=== PATIENT | male | born 1955 | race Caucasian/White ===

== ENCOUNTER 2022-09-24 10:30 | Outpatient (RCR) | payer MEDICARE, SELFPAY ==
[2022-09-12] MEDS: Normal Saline Flush 10 ML SYR IVP (08:59)
[2022-09-12 09:23] LABS: Abs Immature Grans 0.03 10^3/uL (0.0-0.06); Absolute Basophil Count 0.08 10^3/uL (0.0-0.2); Absolute Eosinophil Count 0.53 10^3/uL (0.0-0.7); Absolute Lymphocyte Count 3.06 10^3/uL (1.2-3.4); Absolute Monocyte Count 1.04 10^3/uL (0.1-0.8); Absolute Neutrophil Count 6.69 10^3/uL (1.2-6.7); Basophils % 0.7; Eosinophils % 4.6; HCT 39.9 % (40.0-50.0); HGB 13.2 g/dL (13.5-17.5); Immature Grans % 0.3; Lymphocytes % 26.8; MCH 28.1 pg (27.0-33.0); MCHC 33.1 % (32.0-36.0); MCV 85 fL (80-95); Monocytes % 9.1; Neutrophils % 58.5; Platelet Count 483 10^3/uL (130-400); RBC 4.69 10^6/uL (4.36-5.78); RDW 14.4 % (11.8-14.1); RDW-SD 44.2 fL; WBC 11.43 10^3/uL (4.4-10.8)
[2022-09-12 09:44] LABS: ALT 20 U/L (16-63); AST 19 U/L (15-37); Albumin 3.1 g/dL (3.4-5.0); Alkaline Phosphatase 100 U/L (46-116); Anion Gap 9.9 mmol/L (3-11); BUN 11 mg/dL (7-18); Bilirubin, Total 0.5 mg/dL (0.2-1.0); CO2 25.1 mmol/L (21.0-32.0); CREATININE 0.9 mg/dL (0.70-1.30); Calcium 8.6 mg/dL (8.5-10.1); Chloride 102 mmol/L (98-107); Estimated GFR 93.61 (mL/min/1.73m2); Glucose 236 mg/dL (74-106); LDH 203 U/L (85-227); PHOSPHORUS 3.5 mg/dL (2.6-4.7); Potassium 3.7 mmol/L (3.5-5.1); Sodium 137 mmol/L (136-145); Total Protein 7.4 g/dL (6.4-8.2); Uric Acid 5.2 mg/dL (3.5-7.2)
[2022-09-13 10:28] LABS: IgA 484 mg/dL (85-499); IgG 1296 mg/dL (610-1616); IgM 61 mg/dL (35-242)
[2022-09-19] MEDS: Heparin 500 UNITS/5 ML SYRINGE IV (13:42)
[2022-09-19] MEDS: Normal Saline Flush 10 ML SYR IVP (13:42)
[2022-09-19 13:56] LABS: Abs Immature Grans 0.24 10^3/uL (0.0-0.06); HCT 38.5 % (40.0-50.0); HGB 12.5 g/dL (13.5-17.5); MCH 27.7 pg (27.0-33.0); MCHC 32.5 % (32.0-36.0); MCV 85 fL (80-95); MPV 10.5 fL (8.0-11.0); Platelet Count 303 10^3/uL (130-400); RBC 4.52 10^6/uL (4.36-5.78); RDW 13.9 % (11.8-14.1); RDW-SD 43.3 fL; WBC 3.91 10^3/uL (4.4-10.8)
[2022-09-19 14:16] LABS: Absolute Lymphocyte Count 1.56 10^3/uL (1.2-3.4); Absolute Monocyte Count 0.27 10^3/uL (0.1-0.8); Absolute Neutrophil Count 1.99 10^3/uL (1.2-6.7); Bands % 11
[2022-09-19 14:17] LABS: Diff Comment Manual Differential; Metamyelocytes % 2; RBC Morphology Normal
[2022-09-19 15:29] LABS: ALT 20 U/L (16-63); AST 15 U/L (15-37); Albumin 3.2 g/dL (3.4-5.0); Alkaline Phosphatase 92 U/L (46-116); Anion Gap 11.7 mmol/L (3-11); BUN 11 mg/dL (7-18); Bilirubin, Total 0.4 mg/dL (0.2-1.0); CO2 25.3 mmol/L (21.0-32.0); CREATININE 0.7 mg/dL (0.70-1.30); Calcium 8.4 mg/dL (8.5-10.1); Chloride 101 mmol/L (98-107); Estimated GFR 100.99 (mL/min/1.73m2); Glucose 185 mg/dL (74-106); Potassium 3.4 mmol/L (3.5-5.1); Sodium 138 mmol/L (136-145)
[2022-09-20 08:44] LABS: Uric Acid 4.1 mg/dL (3.5-7.2)
[2022-09-24] MEDS: Normal Saline Flush 10 ML SYR IVP (11:45)
[2022-09-24 11:51] LABS: Abs Immature Grans 1.25 10^3/uL (0.0-0.06); HCT 40.7 % (40.0-50.0); HGB 13.2 g/dL (13.5-17.5); MCH 27.7 pg (27.0-33.0); MCHC 32.4 % (32.0-36.0); MCV 86 fL (80-95); MPV 9.9 fL (8.0-11.0); Platelet Count 318 10^3/uL (130-400); RBC 4.76 10^6/uL (4.36-5.78); RDW 14.3 % (11.8-14.1)
[2022-09-24 12:09] LABS: ALT 22 U/L (16-63); AST 18 U/L (15-37); Albumin 3.3 g/dL (3.4-5.0); Alkaline Phosphatase 96 U/L (46-116); Anion Gap 10.1 mmol/L (3-11); BUN 10 mg/dL (7-18); Bilirubin, Total 0.3 mg/dL (0.2-1.0); CO2 27.9 mmol/L (21.0-32.0); CREATININE 0.9 mg/dL (0.70-1.30); Calcium 8.9 mg/dL (8.5-10.1); Chloride 103 mmol/L (98-107); Estimated GFR 93.61 (mL/min/1.73m2); Glucose 138 mg/dL (74-106); Potassium 3.6 mmol/L (3.5-5.1); Sodium 141 mmol/L (136-145); Total Protein 7.2 g/dL (6.4-8.2)
[2022-09-24 12:11] LABS: Absolute Neutrophil Count 6.53 10^3/uL (1.2-6.7); Bands % 6
[2022-09-24 12:12] LABS: Absolute Basophil Count 0.24 10^3/uL (0.0-0.2); Absolute Eosinophil Count 0.12 10^3/uL (0.0-0.7); Absolute Lymphocyte Count 3.39 10^3/uL (1.2-3.4); Absolute Monocyte Count 1.82 10^3/uL (0.1-0.8); Atypical Lymphocytes % 1; Diff Comment Manual Differential; RBC Morphology Normal
== END 2022-10-02 23:59 | disposition home or self-care (01) ==
LOC: INF 10:30
PROVIDERS: PCP Family Medicine; Visit Provider Nurse Practitioner Adult Health
DX: C86.5 Angioimmunoblastic T-cell lymphoma (principal); Z45.2 Encounter for adjustment and management of vascular access device
CPT/HCPCS: 36591; 80053; 82784; 83615; 84100; 84550; 85025

== ENCOUNTER 2022-10-24 02:28 | Outpatient (RCR) | payer MEDICARE, SELFPAY ==
[2022-10-03] MEDS: Normal Saline Flush 10 ML SYR IVP (09:36)
[2022-10-03 09:56] LABS: Abs Immature Grans 0.08 10^3/uL (0.0-0.06); Absolute Eosinophil Count 0.47 10^3/uL (0.0-0.7); Absolute Lymphocyte Count 2.87 10^3/uL (1.2-3.4); Absolute Monocyte Count 1.34 10^3/uL (0.1-0.8); Absolute Neutrophil Count 7.49 10^3/uL (1.2-6.7); Basophils % 3.2; Eosinophils % 3.7; HCT 39.4 % (40.0-50.0); HGB 12.8 g/dL (13.5-17.5); Immature Grans % 0.6; Lymphocytes % 22.7; MCH 27.7 pg (27.0-33.0); MCHC 32.5 % (32.0-36.0); MCV 85 fL (80-95); MPV 10.2 fL (8.0-11.0); Monocytes % 10.6; Neutrophils % 59.2; RBC 4.62 10^6/uL (4.36-5.78); RDW-SD 45.7 fL; WBC 12.65 10^3/uL (4.4-10.8)
[2022-10-03 10:15] LABS: ALT 24 U/L (16-63); AST 20 U/L (15-37); Albumin 3.4 g/dL (3.4-5.0); Alkaline Phosphatase 81 U/L (46-116); Anion Gap 7.6 mmol/L (3-11); BUN 10 mg/dL (7-18); Bilirubin, Total 0.6 mg/dL (0.2-1.0); CO2 27.4 mmol/L (21.0-32.0); CREATININE 0.9 mg/dL (0.70-1.30); Chloride 102 mmol/L (98-107); Estimated GFR 93.61 (mL/min/1.73m2); Glucose 137 mg/dL (74-106); LDH 250 U/L (85-227); Potassium 4.3 mmol/L (3.5-5.1); Sodium 137 mmol/L (136-145); Total Protein 7.4 g/dL (6.4-8.2); Uric Acid 4.6 mg/dL (3.5-7.2)
[2022-10-03 10:19] LABS: Platelet Count 652 10^3/uL (130-400)
[2022-10-04 11:09] LABS: IgA 367 mg/dL (85-499); IgG 999 mg/dL (610-1616); IgM 59 mg/dL (35-242)
[2022-10-24] MEDS: Normal Saline Flush 10 ML SYR IVP (07:51)
[2022-10-24 08:07] LABS: Abs Immature Grans 0.04 10^3/uL (0.0-0.06); Absolute Eosinophil Count 0.13 10^3/uL (0.0-0.7); Absolute Lymphocyte Count 2.16 10^3/uL (1.2-3.4); Absolute Monocyte Count 1.24 10^3/uL (0.1-0.8); Absolute Neutrophil Count 5.39 10^3/uL (1.2-6.7); Basophils % 2.2; Eosinophils % 1.4; HCT 36.9 % (40.0-50.0); HGB 12.3 g/dL (13.5-17.5); Immature Grans % 0.4; Lymphocytes % 23.6; MCH 28.5 pg (27.0-33.0); MCHC 33.3 % (32.0-36.0); MCV 86 fL (80-95); MPV 10.4 fL (8.0-11.0); Monocytes % 13.5; Neutrophils % 58.9; Platelet Count 488 10^3/uL (130-400); RBC 4.31 10^6/uL (4.36-5.78); RDW 16.5 % (11.8-14.1); RDW-SD 50.3 fL; WBC 9.16 10^3/uL (4.4-10.8)
[2022-10-24 08:21] LABS: ALT 20 U/L (16-63); AST 15 U/L (15-37); Albumin 3.2 g/dL (3.4-5.0); Alkaline Phosphatase 83 U/L (46-116); Anion Gap 8.4 mmol/L (3-11); BUN 11 mg/dL (7-18); Bilirubin, Total 0.4 mg/dL (0.2-1.0); CO2 25.6 mmol/L (21.0-32.0); CREATININE 0.8 mg/dL (0.70-1.30); Calcium 8.9 mg/dL (8.5-10.1); Chloride 107 mmol/L (98-107); Glucose 142 mg/dL (74-106); LDH 202 U/L (85-227); PHOSPHORUS 3.8 mg/dL (2.6-4.7); Potassium 4.1 mmol/L (3.5-5.1); Sodium 141 mmol/L (136-145); Total Protein 6.8 g/dL (6.4-8.2); Uric Acid 4.4 mg/dL (3.5-7.2)
[2022-10-25 09:29] LABS: IgA 319 mg/dL (85-499); IgG 849 mg/dL (610-1616); IgM 54 mg/dL (35-242)
== END 2022-11-02 23:59 | disposition home or self-care (01) ==
LOC: INF 02:28
PROVIDERS: PCP Family Medicine; Visit Provider Nurse Practitioner Adult Health
DX: C86.5 Angioimmunoblastic T-cell lymphoma (principal); Z45.2 Encounter for adjustment and management of vascular access device
CPT/HCPCS: 36591; 80053; 82784; 83615; 84100; 84550; 85025

== ENCOUNTER 2022-11-14 02:43 | Outpatient (RCR) | payer MEDICARE, SELFPAY ==
[2022-11-14] MEDS: Normal Saline Flush 10 ML SYR IVP (08:35)
[2022-11-14 08:41] LABS: Abs Immature Grans 0.05 10^3/uL (0.0-0.06); Absolute Basophil Count 0.19 10^3/uL (0.0-0.2); Absolute Eosinophil Count 0.09 10^3/uL (0.0-0.7); Absolute Lymphocyte Count 1.99 10^3/uL (1.2-3.4); Absolute Monocyte Count 1.17 10^3/uL (0.1-0.8); Absolute Neutrophil Count 7.95 10^3/uL (1.2-6.7); Basophils % 1.7; Eosinophils % 0.8; HCT 37.5 % (40.0-50.0); HGB 12.5 g/dL (13.5-17.5); Immature Grans % 0.4; Lymphocytes % 17.4; MCH 28.9 pg (27.0-33.0); MCHC 33.3 % (32.0-36.0); MCV 87 fL (80-95); MPV 10.2 fL (8.0-11.0); Monocytes % 10.2; Neutrophils % 69.5; Platelet Count 562 10^3/uL (130-400); RBC 4.33 10^6/uL (4.36-5.78); RDW 17.9 % (11.8-14.1); RDW-SD 55.6 fL; WBC 11.44 10^3/uL (4.4-10.8)
[2022-11-14 08:56] LABS: ALT 23 U/L (16-63); AST 18 U/L (15-37); Albumin 3.4 g/dL (3.4-5.0); Alkaline Phosphatase 79 U/L (46-116); Anion Gap 8.2 mmol/L (3-11); BUN 14 mg/dL (7-18); Bilirubin, Total 0.6 mg/dL (0.2-1.0); CO2 24.8 mmol/L (21.0-32.0); CREATININE 0.8 mg/dL (0.70-1.30); Chloride 104 mmol/L (98-107); Glucose 147 mg/dL (74-106); LDH 203 U/L (85-227); PHOSPHORUS 3.6 mg/dL (2.6-4.7); Potassium 4.4 mmol/L (3.5-5.1); Sodium 137 mmol/L (136-145); Total Protein 7.3 g/dL (6.4-8.2); Uric Acid 4.6 mg/dL (3.5-7.2)
[2022-11-15 10:45] LABS: IgA 320 mg/dL (85-499); IgG 830 mg/dL (610-1616); IgM 47 mg/dL (35-242)
== END 2022-12-02 23:59 | disposition home or self-care (01) ==
LOC: INF 02:43
PROVIDERS: PCP Family Medicine; Visit Provider Nurse Practitioner Adult Health
DX: C86.5 Angioimmunoblastic T-cell lymphoma (principal); Z45.2 Encounter for adjustment and management of vascular access device
CPT/HCPCS: 36591; 80053; 82784; 83615; 84100; 84550; 85025

== ENCOUNTER 2022-12-26 04:10 | Outpatient (RCR) | payer MEDICARE, SELFPAY ==
[2022-12-05] MEDS: Normal Saline Flush 10 ML SYR IVP (09:17)
[2022-12-05 09:20] LABS: Abs Immature Grans 0.05 10^3/uL (0.0-0.06); Absolute Basophil Count 0.16 10^3/uL (0.0-0.2); Absolute Eosinophil Count 0.05 10^3/uL (0.0-0.7); Absolute Lymphocyte Count 1.66 10^3/uL (1.2-3.4); Absolute Monocyte Count 1.01 10^3/uL (0.1-0.8); Absolute Neutrophil Count 7.72 10^3/uL (1.2-6.7); Basophils % 1.5; Eosinophils % 0.5; HCT 35.1 % (40.0-50.0); HGB 11.8 g/dL (13.5-17.5); Immature Grans % 0.5; Lymphocytes % 15.6; MCH 30.1 pg (27.0-33.0); MCHC 33.6 % (32.0-36.0); MCV 90 fL (80-95); MPV 9.7 fL (8.0-11.0); Monocytes % 9.5; Neutrophils % 72.4; Platelet Count 620 10^3/uL (130-400); RBC 3.92 10^6/uL (4.36-5.78); RDW 18.7 % (11.8-14.1); RDW-SD 61.1 fL; WBC 10.65 10^3/uL (4.4-10.8)
[2022-12-05 09:38] LABS: ALT 20 U/L (16-63); AST 16 U/L (15-37); Albumin 3.2 g/dL (3.4-5.0); Alkaline Phosphatase 79 U/L (46-116); Anion Gap 8.6 mmol/L (3-11); BUN 9 mg/dL (7-18); Bilirubin, Total 0.4 mg/dL (0.2-1.0); CO2 26.4 mmol/L (21.0-32.0); CREATININE 0.8 mg/dL (0.70-1.30); Chloride 108 mmol/L (98-107); Glucose 141 mg/dL (74-106); LDH 193 U/L (85-227); PHOSPHORUS 3.6 mg/dL (2.6-4.7); Potassium 4.4 mmol/L (3.5-5.1); Sodium 143 mmol/L (136-145); Total Protein 7.2 g/dL (6.4-8.2); Uric Acid 4.8 mg/dL (3.5-7.2)
[2022-12-06 09:11] LABS: IgA 291 mg/dL (85-499); IgG 867 mg/dL (610-1616); IgM 43 mg/dL (35-242)
[2022-12-26] MEDS: Normal Saline Flush 10 ML SYR IVP (08:43)
[2022-12-26 08:54] LABS: Abs Immature Grans 0.09 10^3/uL (0.0-0.06); Absolute Eosinophil Count 0.02 10^3/uL (0.0-0.7); Absolute Lymphocyte Count 1.35 10^3/uL (1.2-3.4); Absolute Monocyte Count 1.22 10^3/uL (0.1-0.8); Absolute Neutrophil Count 8.53 10^3/uL (1.2-6.7); Basophils % 0.9; Eosinophils % 0.2; HCT 33.6 % (40.0-50.0); HGB 11.1 g/dL (13.5-17.5); Immature Grans % 0.8; Lymphocytes % 11.9; MCH 30.4 pg (27.0-33.0); MCV 92 fL (80-95); MPV 9.9 fL (8.0-11.0); Monocytes % 10.8; Neutrophils % 75.4; Platelet Count 555 10^3/uL (130-400); RBC 3.65 10^6/uL (4.36-5.78); RDW 17.2 % (11.8-14.1); RDW-SD 58.4 fL; WBC 11.31 10^3/uL (4.4-10.8)
[2022-12-26 09:14] LABS: ALT 20 U/L (16-63); AST 17 U/L (15-37); Albumin 3.3 g/dL (3.4-5.0); Alkaline Phosphatase 82 U/L (46-116); Anion Gap 9.6 mmol/L (3-11); BUN 14 mg/dL (7-18); Bilirubin, Total 0.6 mg/dL (0.2-1.0); CO2 25.4 mmol/L (21.0-32.0); CREATININE 0.8 mg/dL (0.70-1.30); Calcium 9.3 mg/dL (8.5-10.1); Chloride 104 mmol/L (98-107); Glucose 152 mg/dL (74-106); LDH 184 U/L (85-227); PHOSPHORUS 3.7 mg/dL (2.6-4.7); Potassium 3.9 mmol/L (3.5-5.1); Sodium 139 mmol/L (136-145); Total Protein 7.1 g/dL (6.4-8.2); Uric Acid 4.5 mg/dL (3.5-7.2)
[2022-12-27 11:59] LABS: IgA 315 mg/dL (85-499); IgG 841 mg/dL (610-1616); IgM 49 mg/dL (35-242)
== END 2023-01-02 23:59 | disposition home or self-care (01) ==
LOC: INF 04:10
PROVIDERS: PCP Family Medicine; Visit Provider Nurse Practitioner Adult Health
DX: C86.5 Angioimmunoblastic T-cell lymphoma (principal); Z45.2 Encounter for adjustment and management of vascular access device
CPT/HCPCS: 36591; 80053; 82784; 83615; 84100; 84550; 85025

== ENCOUNTER 2023-01-09 03:44 | Outpatient (RCR) | payer MEDICARE, SELFPAY ==
[2023-01-09] MEDS: Normal Saline Flush 10 ML SYR IVP (07:45)
[2023-01-09 08:26] LABS: Abs Immature Grans 0.04 10^3/uL (0.0-0.06); Absolute Basophil Count 0.16 10^3/uL (0.0-0.2); Absolute Eosinophil Count 0.89 10^3/uL (0.0-0.7); Absolute Lymphocyte Count 1.89 10^3/uL (1.2-3.4); Absolute Neutrophil Count 5.97 10^3/uL (1.2-6.7); Basophils % 1.6; Eosinophils % 8.9; HCT 35.5 % (40.0-50.0); HGB 11.8 g/dL (13.5-17.5); Immature Grans % 0.4; Lymphocytes % 18.8; MCH 31.3 pg (27.0-33.0); MCHC 33.2 % (32.0-36.0); MCV 94 fL (80-95); MPV 9.9 fL (8.0-11.0); Monocytes % 10.9; Neutrophils % 59.4; Platelet Count 540 10^3/uL (130-400); RBC 3.77 10^6/uL (4.36-5.78); RDW 15.3 % (11.8-14.1); RDW-SD 52.8 fL; WBC 10.05 10^3/uL (4.4-10.8)
[2023-01-09 09:08] LABS: ALT 23 U/L (16-63); AST 19 U/L (15-37); Albumin 3.4 g/dL (3.4-5.0); Alkaline Phosphatase 77 U/L (46-116); Anion Gap 7.9 mmol/L (3-11); BUN 21 mg/dL (7-18); Bilirubin, Total 0.3 mg/dL (0.2-1.0); CO2 26.1 mmol/L (21.0-32.0); Calcium 9.7 mg/dL (8.5-10.1); Chloride 102 mmol/L (98-107); Estimated GFR 81.98 (mL/min/1.73m2); Glucose 132 mg/dL (74-106); LDH 175 U/L (85-227); PHOSPHORUS 4.9 mg/dL (2.6-4.7); Sodium 136 mmol/L (136-145); Total Protein 7.4 g/dL (6.4-8.2); Uric Acid 5.1 mg/dL (3.5-7.2)
[2023-01-10 10:47] LABS: IgA 354 mg/dL (85-499); IgG 962 mg/dL (610-1616); IgM 71 mg/dL (35-242)
== END 2023-02-01 23:59 | disposition home or self-care (01) ==
LOC: INF 03:44
PROVIDERS: PCP Family Medicine; Visit Provider Nurse Practitioner Adult Health
DX: C86.5 Angioimmunoblastic T-cell lymphoma (principal); Z45.2 Encounter for adjustment and management of vascular access device
CPT/HCPCS: 36591; 80053; 82784; 83615; 84100; 84550; 85025

== ENCOUNTER 2023-05-01 02:32 | Outpatient (RCR) | payer MEDICARE, SELFPAY ==
[2023-05-01] MEDS: Normal Saline Flush 10 ML SYR IVP (13:26)
[2023-05-01] MEDS: Heparin 500 UNITS/5 ML SYRINGE (13:26)
[2023-05-01 13:37] LABS: Abs Immature Grans 0.02 10^3/uL (0.0-0.06); Absolute Basophil Count 0.17 10^3/uL (0.0-0.2); Absolute Eosinophil Count 0.66 10^3/uL (0.0-0.7); Absolute Lymphocyte Count 2.85 10^3/uL (1.2-3.4); Absolute Monocyte Count 1.08 10^3/uL (0.1-0.8); Absolute Neutrophil Count 3.83 10^3/uL (1.2-6.7); Eosinophils % 7.7; HCT 34.6 % (40.0-50.0); HGB 11.3 g/dL (13.5-17.5); Immature Grans % 0.2; Lymphocytes % 33.1; MCH 28.2 pg (27.0-33.0); MCHC 32.7 % (32.0-36.0); MCV 86 fL (80-95); MPV 9.1 fL (8.0-11.0); Monocytes % 12.5; Neutrophils % 44.5; Platelet Count 357 10^3/uL (130-400); RBC 4.01 10^6/uL (4.36-5.78); RDW 15.4 % (11.8-14.1); RDW-SD 47.8 fL; WBC 8.61 10^3/uL (4.4-10.8)
[2023-05-01 14:01] LABS: ALT 21 U/L (16-63); AST 16 U/L (15-37); Alkaline Phosphatase 80 U/L (46-116); BUN 8 mg/dL (7-18); Bilirubin, Total 0.3 mg/dL (0.2-1.0); CREATININE 0.7 mg/dL (0.70-1.30); Calcium 9.4 mg/dL (8.5-10.1); Chloride 103 mmol/L (98-107); Estimated GFR 100.37 (mL/min/1.73m2); Glucose 114 mg/dL (74-106); LDH 189 U/L (85-227); Potassium 3.8 mmol/L (3.5-5.1); Sodium 139 mmol/L (136-145); Total Protein 7.2 g/dL (6.4-8.2)
[2023-05-02 08:37] LABS: IgA 323 mg/dL (85-499); IgG 848 mg/dL (610-1616); IgM 60 mg/dL (35-242)
== END 2023-05-04 23:59 | disposition home or self-care (01) ==
LOC: INF 02:32
PROVIDERS: Internal Medicine Hematology & Oncology; PCP Family Medicine; Visit Provider Nurse Practitioner Adult Health
DX: C84.78 Anaplastic large cell lymphoma, ALK-negative, lymph nodes of multiple sites (principal); Z52.011 Autologous donor, stem cells; Z45.2 Encounter for adjustment and management of vascular access device
CPT/HCPCS: 36591; 80053; 82784; 83615; 85025

== ENCOUNTER 2023-05-22 03:44 | Outpatient (RCR) | payer MEDICARE, SELFPAY ==
[2023-05-22] MEDS: Heparin 500 UNITS/5 ML SYRINGE IV (14:20)
[2023-05-22] MEDS: Normal Saline Flush 10 ML SYR IVP (14:20)
[2023-05-22 14:28] LABS: Abs Immature Grans 0.02 10^3/uL (0.0-0.06); Absolute Basophil Count 0.09 10^3/uL (0.0-0.2); Absolute Eosinophil Count 0.35 10^3/uL (0.0-0.7); Absolute Lymphocyte Count 3.62 10^3/uL (1.2-3.4); Absolute Monocyte Count 1.14 10^3/uL (0.1-0.8); Absolute Neutrophil Count 4.39 10^3/uL (1.2-6.7); Basophils % 0.9; Eosinophils % 3.6; HCT 35.3 % (40.0-50.0); HGB 11.9 g/dL (13.5-17.5); Immature Grans % 0.2; Lymphocytes % 37.7; MCHC 33.7 % (32.0-36.0); MCV 86 fL (80-95); MPV 8.8 fL (8.0-11.0); Monocytes % 11.9; Neutrophils % 45.7; Platelet Count 386 10^3/uL (130-400); RDW 16.1 % (11.8-14.1); RDW-SD 50.5 fL; WBC 9.61 10^3/uL (4.4-10.8)
[2023-05-22 14:42] LABS: ALT 22 U/L (16-63); AST 21 U/L (15-37); Albumin 3.3 g/dL (3.4-5.0); Alkaline Phosphatase 77 U/L (46-116); Anion Gap 8.3 mmol/L (3-11); BUN 12 mg/dL (7-18); Bilirubin, Total 0.4 mg/dL (0.2-1.0); CO2 25.7 mmol/L (21.0-32.0); CREATININE 0.8 mg/dL (0.70-1.30); Calcium 9.3 mg/dL (8.5-10.1); Chloride 100 mmol/L (98-107); Glucose 113 mg/dL (74-106); LDH 201 U/L (85-227); Potassium 3.8 mmol/L (3.5-5.1); Sodium 134 mmol/L (136-145); Total Protein 7.4 g/dL (6.4-8.2)
== END 2023-06-04 23:59 | disposition home or self-care (01) ==
LOC: INF 03:44
PROVIDERS: PCP Family Medicine; Visit Provider Nurse Practitioner Adult Health
DX: Z52.011 Autologous donor, stem cells (principal); C84.78 Anaplastic large cell lymphoma, ALK-negative, lymph nodes of multiple sites; Z45.2 Encounter for adjustment and management of vascular access device
CPT/HCPCS: 36591; 80053; 83615; 85025

== ENCOUNTER 2023-06-18 00:57 | Outpatient (RCR) | payer MEDICARE, SELFPAY ==
[2023-06-18] MEDS: Heparin 500 UNITS/5 ML SYRINGE IV (12:36)
[2023-06-18] MEDS: Normal Saline Flush 10 ML SYR IVP (12:36)
[2023-06-18 12:50] LABS: Abs Immature Grans 0.01 10^3/uL (0.0-0.06); Absolute Basophil Count 0.06 10^3/uL (0.0-0.2); Absolute Lymphocyte Count 3.18 10^3/uL (1.2-3.4); Absolute Monocyte Count 0.73 10^3/uL (0.1-0.8); Basophils % 0.7; Eosinophils % 2.3; HCT 36.6 % (40.0-50.0); HGB 12.1 g/dL (13.5-17.5); Immature Grans % 0.1; Lymphocytes % 37.1; MCH 29.4 pg (27.0-33.0); MCHC 33.1 % (32.0-36.0); MCV 89 fL (80-95); MPV 8.6 fL (8.0-11.0); Monocytes % 8.5; Neutrophils % 51.3; Platelet Count 446 10^3/uL (130-400); RBC 4.12 10^6/uL (4.36-5.78); RDW 16.6 % (11.8-14.1); RDW-SD 54.2 fL; WBC 8.58 10^3/uL (4.4-10.8)
[2023-06-18 13:21] LABS: ALT 25 U/L (16-63); AST 17 U/L (15-37); Albumin 3.6 g/dL (3.4-5.0); Alkaline Phosphatase 71 U/L (46-116); Anion Gap 8.2 mmol/L (3-11); BUN 15 mg/dL (7-18); Bilirubin, Total 0.6 mg/dL (0.2-1.0); CO2 26.8 mmol/L (21.0-32.0); Calcium 9.4 mg/dL (8.5-10.1); Chloride 105 mmol/L (98-107); Estimated GFR 81.98 (mL/min/1.73m2); Glucose 182 mg/dL (74-106); LDH 174 U/L (85-227); Potassium 4.3 mmol/L (3.5-5.1); Sodium 140 mmol/L (136-145); Total Protein 7.8 g/dL (6.4-8.2)
== END 2023-07-04 23:59 | disposition home or self-care (01) ==
LOC: INF 00:57
PROVIDERS: Internal Medicine Hematology & Oncology; PCP Family Medicine; Visit Provider Nurse Practitioner Adult Health
DX: C84.78 Anaplastic large cell lymphoma, ALK-negative, lymph nodes of multiple sites (principal); Z52.011 Autologous donor, stem cells; Z45.2 Encounter for adjustment and management of vascular access device
CPT/HCPCS: 36591; 80053; 83615; 85025

== ENCOUNTER 2023-07-17 04:12 | Outpatient (RCR) | payer MEDICARE, SELFPAY ==
[2023-07-17] MEDS: Normal Saline Flush 10 ML SYR IVP (13:45)
[2023-07-17 13:49] LABS: Abs Immature Grans 0.02 10^3/uL (0.0-0.06); Absolute Basophil Count 0.05 10^3/uL (0.0-0.2); Absolute Eosinophil Count 0.22 10^3/uL (0.0-0.7); Absolute Lymphocyte Count 1.47 10^3/uL (1.2-3.4); Absolute Monocyte Count 0.53 10^3/uL (0.1-0.8); Absolute Neutrophil Count 3.82 10^3/uL (1.2-6.7); Basophils % 0.8; Eosinophils % 3.6; HGB 11.2 g/dL (13.5-17.5); Immature Grans % 0.3; Lymphocytes % 24.1; MCH 30.1 pg (27.0-33.0); MCHC 32.9 % (32.0-36.0); MCV 91 fL (80-95); MPV 8.7 fL (8.0-11.0); Monocytes % 8.7; Neutrophils % 62.5; Platelet Count 449 10^3/uL (130-400); RBC 3.72 10^6/uL (4.36-5.78); RDW-SD 50.3 fL; WBC 6.11 10^3/uL (4.4-10.8)
[2023-07-17] MEDS: Heparin 500 UNITS/5 ML SYRINGE IV (13:51)
[2023-07-17 14:05] LABS: ALT 24 U/L (16-63); AST 16 U/L (15-37); Albumin 3.1 g/dL (3.4-5.0); Alkaline Phosphatase 71 U/L (46-116); Anion Gap 8.6 mmol/L (3-11); BUN 12 mg/dL (7-18); Bilirubin, Total 0.3 mg/dL (0.2-1.0); CO2 25.4 mmol/L (21.0-32.0); CREATININE 0.9 mg/dL (0.70-1.30); Calcium 8.9 mg/dL (8.5-10.1); Chloride 105 mmol/L (98-107); Estimated GFR 93.03 (mL/min/1.73m2); Glucose 185 mg/dL (74-106); LDH 191 U/L (85-227); Potassium 3.9 mmol/L (3.5-5.1); Sodium 139 mmol/L (136-145)
== END 2023-08-04 23:59 | disposition home or self-care (01) ==
LOC: INF 04:12
PROVIDERS: Internal Medicine Hematology & Oncology; PCP Family Medicine; Visit Provider Nurse Practitioner Adult Health
DX: C84.78 Anaplastic large cell lymphoma, ALK-negative, lymph nodes of multiple sites (principal); Z52.011 Autologous donor, stem cells; Z45.2 Encounter for adjustment and management of vascular access device
CPT/HCPCS: 36591; 80053; 83615; 85025

== ENCOUNTER 2023-10-09 04:41 | Outpatient (RCR) | payer MEDICARE, SELFPAY ==
[2023-10-09] MEDS: Normal Saline Flush 10 ML SYR IVP (13:05)
[2023-10-09 13:43] LABS: Abs Immature Grans 0.02 10^3/uL (0.0-0.06); Absolute Basophil Count 0.07 10^3/uL (0.0-0.2); Absolute Eosinophil Count 0.15 10^3/uL (0.0-0.7); Absolute Lymphocyte Count 1.94 10^3/uL (1.2-3.4); Absolute Monocyte Count 0.78 10^3/uL (0.1-0.8); Absolute Neutrophil Count 5.27 10^3/uL (1.2-6.7); Basophils % 0.9; Eosinophils % 1.8; HCT 34.2 % (40.0-50.0); HGB 11.2 g/dL (13.5-17.5); Immature Grans % 0.2; Lymphocytes % 23.6; MCH 28.9 pg (27.0-33.0); MCHC 32.7 % (32.0-36.0); MCV 88 fL (80-95); MPV 9.2 fL (8.0-11.0); Monocytes % 9.5; Platelet Count 476 10^3/uL (130-400); RBC 3.87 10^6/uL (4.36-5.78); RDW 15.3 % (11.8-14.1); RDW-SD 49.6 fL; WBC 8.23 10^3/uL (4.4-10.8)
[2023-10-09 14:22] LABS: ALT 24 U/L (16-63); AST 16 U/L (15-37); Albumin 2.9 g/dL (3.4-5.0); Alkaline Phosphatase 67 U/L (46-116); Anion Gap 10.5 mmol/L (3-11); BUN 12 mg/dL (7-18); Bilirubin, Total 0.5 mg/dL (0.2-1.0); CO2 25.5 mmol/L (21.0-32.0); CREATININE 0.8 mg/dL (0.70-1.30); Calcium 8.7 mg/dL (8.5-10.1); Chloride 102 mmol/L (98-107); Glucose 122 mg/dL (74-106); LDH 143 U/L (85-227); Potassium 3.8 mmol/L (3.5-5.1); Sodium 138 mmol/L (136-145); Total Protein 7.1 g/dL (6.4-8.2)
[2023-10-09 14:59] LABS: Calculated LDL 81 mg/dL (<100); Cholesterol 155 mg/dL (<200); HDL Cholesterol 56 mg/dL (40-60); TSH 2.36 uIU/Ml (0.36-3.74); Triglyceride 90 mg/dL (<150); Vitamin B12 257 pg/mL (193-986)
[2023-10-09 15:32] LABS: Hemoglobin A1C 6.5 % (<5.7)
== END 2023-11-03 23:59 | disposition home or self-care (01) ==
LOC: INF 04:41
PROVIDERS: PCP Family Medicine; Visit Provider Internal Medicine Hematology & Oncology
DX: C84.78 Anaplastic large cell lymphoma, ALK-negative, lymph nodes of multiple sites; E11.9 Type 2 diabetes mellitus without complications; Z45.2 Encounter for adjustment and management of vascular access device
CPT/HCPCS: 36591; 80053; 80061; 82607; 83036; 83615; 84443; 85025

== ENCOUNTER → 2023-11-06 10:55 | Outpatient (BNVA) | payer MEDICARE, SELFPAY | PROVIDERS: PCP Family Medicine; Referring Provider Family Medicine; Visit Provider Surgery | DX: Z45.2 Encounter for adjustment and management of vascular access device (principal); I48.91 Unspecified atrial fibrillation | CPT/HCPCS: 36590; 99203 ==

== ENCOUNTER → 2023-11-13 11:48 | Outpatient (BNVA) | payer MEDICARE, SELFPAY | PROVIDERS: PCP Family Medicine; Referring Provider Family Medicine; Visit Provider Surgery | DX: Z48.02 Encounter for removal of sutures (principal) ==

== ENCOUNTER 2024-01-08 05:12 | Outpatient (RCR) | payer MEDICARE, SELFPAY ==
[2024-01-08 12:27] LABS: Abs Immature Grans 0.02 10^3/uL (0.0-0.06); Absolute Basophil Count 0.07 10^3/uL (0.0-0.2); Absolute Eosinophil Count 0.21 10^3/uL (0.0-0.7); Absolute Monocyte Count 0.61 10^3/uL (0.1-0.8); Absolute Neutrophil Count 4.11 10^3/uL (1.2-6.7); Eosinophils % 3.1 %; HCT 38.2 % (40.0-50.0); HGB 12.7 g/dL (13.5-17.5); Immature Grans % 0.3 %; Lymphocytes % 26.4 %; MCH 29.5 pg (27.0-33.0); MCHC 33.2 % (32.0-36.0); MCV 89 fL (80-95); MPV 9.1 fL (8.0-11.0); Monocytes % 8.9 %; Neutrophils % 60.3 %; Platelet Count 378 10^3/uL (130-400); RDW 15.2 % (11.8-14.1); RDW-SD 49.3 fL; WBC 6.82 10^3/uL (4.4-10.8)
[2024-01-08 12:47] LABS: ALT 31 U/L (16-63); AST 20 U/L (15-37); Albumin 3.4 g/dL (3.4-5.0); Alkaline Phosphatase 85 U/L (46-116); Anion Gap 10.3 mmol/L (3-11); BUN 16 mg/dL (7-18); Bilirubin, Total 0.6 mg/dL (0.2-1.0); CO2 25.7 mmol/L (21.0-32.0); CREATININE 0.9 mg/dL (0.70-1.30); Calcium 8.9 mg/dL (8.5-10.1); Chloride 106 mmol/L (98-107); Estimated GFR 92.45 (mL/min/1.73m2); Glucose 129 mg/dL (74-106); LDH 146 U/L (85-227); Potassium 4.3 mmol/L (3.5-5.1); Sodium 142 mmol/L (136-145); Total Protein 7.3 g/dL (6.4-8.2)
== END 2024-02-02 23:59 | disposition home or self-care (01) ==
LOC: INF 05:12
PROVIDERS: PCP Family Medicine; Visit Provider Internal Medicine Hematology & Oncology
DX: Z52.011 Autologous donor, stem cells (principal); C84.78 Anaplastic large cell lymphoma, ALK-negative, lymph nodes of multiple sites
CPT/HCPCS: 36415; 80053; 83615; 85025

== ENCOUNTER 2024-05-27 11:17 | Outpatient (RCR) | payer MEDICARE, SELFPAY ==
[2024-05-27 11:32] LABS: Abs Immature Grans 0.02 10^3/uL (0.0-0.06); Absolute Basophil Count 0.09 10^3/uL (0.0-0.2); Absolute Eosinophil Count 0.21 10^3/uL (0.0-0.7); Absolute Lymphocyte Count 1.99 10^3/uL (1.2-3.4); Absolute Monocyte Count 0.68 10^3/uL (0.1-0.8); Absolute Neutrophil Count 4.15 10^3/uL (1.2-6.7); Basophils % 1.3 %; Eosinophils % 2.9 %; HCT 38.2 % (40.0-50.0); HGB 12.6 g/dL (13.5-17.5); Immature Grans % 0.3 %; Lymphocytes % 27.9 %; MCH 30.4 pg (27.0-33.0); MCV 92 fL (80-95); MPV 9.7 fL (8.0-11.0); Monocytes % 9.5 %; Neutrophils % 58.1 %; Platelet Count 401 10^3/uL (130-400); RBC 4.15 10^6/uL (4.36-5.78); RDW 14.5 % (11.8-14.1); WBC 7.14 10^3/uL (4.4-10.8)
[2024-05-27 11:47] LABS: ALT 31 U/L (16-63); AST 19 U/L (15-37); Albumin 3.4 g/dL (3.4-5.0); Alkaline Phosphatase 100 U/L (46-116); Anion Gap 8.3 mmol/L (3-11); BUN 14 mg/dL (7-18); Bilirubin, Total 0.58 mg/dL (0.2-1.0); CO2 26.7 mmol/L (21.0-32.0); CREATININE 0.8 mg/dL (0.70-1.30); Calcium 9.6 mg/dL (8.5-10.1); Chloride 106 mmol/L (98-107); Glucose 120 mg/dL (74-106); LDH 168 U/L (85-227); Potassium 4.2 mmol/L (3.5-5.1); Sodium 141 mmol/L (136-145); Total Protein 7.7 g/dL (6.4-8.2)
[2024-05-27 19:00] LABS: PSA, Screening 1.1 ng/mL (<=4.5)
[2024-05-28 08:44] LABS: IgA 314 mg/dL (85-499); IgG 1039 mg/dL (610-1616); IgM 55 mg/dL (35-242)
== END 2024-06-04 23:59 | disposition home or self-care (01) ==
LOC: INF 11:17
PROVIDERS: PCP Family Medicine; Visit Provider Internal Medicine Hematology & Oncology
DX: C84.78 Anaplastic large cell lymphoma, ALK-negative, lymph nodes of multiple sites; Z12.5 Encounter for screening for malignant neoplasm of prostate
CPT/HCPCS: 36415; 80053; 82784; 84153; 83615; 85025

== ENCOUNTER 2025-06-30 12:39 | Outpatient (RCR) | payer MEDICARE, SELFPAY ==
[2025-06-30 12:51] LABS: Abs Immature Grans 0.03 10^3/uL (0.0-0.06); HCT 40.6 % (40.0-50.0); HGB 13.8 g/dL (13.5-17.5); Immature Grans % 0.4 %; MCH 31.2 pg (27.0-33.0); MCHC 34.0 % (32.0-36.0); MCV 92 fL (80-95); MPV 9.2 fL (8.0-11.0); Platelet Count 385 10^3/uL (130-400); RBC 4.43 10^6/uL (4.36-5.78); RDW 13.5 % (11.8-14.1); RDW-SD 45.9 fL; WBC 8.49 10^3/uL (4.4-10.8)
[2025-06-30 13:12] LABS: LDH 222 U/L (120-246)
[2025-06-30 13:15] LABS: ALT 16 U/L (10-49); AST 20 U/L (<34); Albumin 4.5 g/dL (3.2-5.0); Alkaline Phosphatase 117 U/L (46-116); Anion Gap 10.4 mmol/L (3-11); BUN 16 mg/dL (9-23); Bilirubin, Total 0.80 mg/dL (0.2-1.2); CO2 31.0 mmol/L (20.0-31.0); Calcium 9.6 mg/dL (8.3-10.6); Chloride 98 mmol/L (98-107); Glucose 96 mg/dL (74-106); Potassium 3.3 mmol/L (3.5-5.1); Sodium 139 mmol/L (136-145); Total Protein 8.0 g/dL (5.7-8.2)
== END 2025-07-04 23:59 | disposition home or self-care (01) ==
LOC: INF 12:39
PROVIDERS: PCP Family Medicine; Visit Provider Internal Medicine Hematology & Oncology
DX: C84.78 Anaplastic large cell lymphoma, ALK-negative, lymph nodes of multiple sites (principal)
CPT/HCPCS: 36415; 80053; 83615; 85025